=== PATIENT | male | born 1995 | race Caucasian/White ===

== ENCOUNTER 2023-07-29 21:37 | Emergency (ER) | payer MEDICAID, OTHER ==
[2023-07-29] MEDS: Sodium Chloride 0.9% 1,000 ML IV SCH (22:00)
[2023-07-29] MEDS: Ondansetron 4 MG/2 ML SDV IVPUSH ONE (22:00)
[2023-07-29 22:14] LABS: BASOPHILS ABSOLUTE AUTO 0.06 K/uL (0.00-0.10); BASOPHILS PERCENT AUTO 0.4 % (0.1-1.3); EOSINOPHILS ABSOLUTE AUTO 0.04 K/uL (0.00-0.40); EOSINOPHILS PERCENT AUTO 0.2 % (0.0-5.4); HEMATOCRIT 49.6 % (38.4-49.7); HEMOGLOBIN 17.1 g/dL (12.9-16.9); IMMATURE GRAN ABSOLUTE AUTO 0.06 K/uL (0.00-0.23); IMMATURE GRAN PERCENT AUTO 0.4 % (0.0-0.7); LYMPHOCYTES ABSOLUTE AUTO 1.55 K/uL (0.8-3.3); LYMPHOCYTES PERCENT AUTO 9.4 % (11.4-47.7); MEAN CORPUSCULAR HEMOGLOBIN 28.8 pg (31.6-35.5); MEAN CORPUSCULAR HGB CONC 34.5 g/dL (31.6-35.5); MEAN CORPUSCULAR VOLUME 83.5 fL (81.4-99.0); MONOCYTES ABSOLUTE AUTO 0.86 K/uL (0.20-0.90); MONOCYTES PERCENT AUTO 5.2 % (3.3-12.6); NEUTROPHILS PERCENT AUTO 84.4 % (40.0-78.1); PLATELET COUNT,PLT 266 K/uL (130-375); RED BLOOD CELL COUNT 5.94 M/uL (4.14-5.76); WHITE BLOOD CELL COUNT,WBC 16.5 K/uL (3.2-11.0)
[2023-07-29] MEDS ORDERED: Naloxone 0.4 MG/ML SDV IVPUSH PRN (22:24)
[2023-07-29] MEDS: HYDROmorphone 0.5 MG/0.5 ML Syringe IVPUSH ONE (22:31)
[2023-07-29] MEDS: Ondansetron 4 MG/2 ML SDV ONE (22:31)
[2023-07-29 22:41] LABS: A/G RATIO 1.1 (1.2-2.2); ALANINE AMINOTRANSFERASE,ALT 31 U/L (12-78); ALBUMIN 4.1 g/dL (3.4-5.0); ALKALINE PHOSPHATASE 79 U/L (46-116); ANION GAP 14.7 mmol/L (5.0-14.0); ASPARTATE AMNIOTRANSFERASE,AST 17 U/L (15-37); BILIRUBIN TOTAL 0.4 mg/dL (0.2-1.0); BLOOD UREA NITROGEN,BUN 17 mg/dL (7-18); CALCIUM 9.3 mg/dL (8.5-10.1); CARBON DIOXIDE,CO2 23 mmol/L (21-32); CHLORIDE,CL 102 mmol/L (100-108); CREATININE 1.2 mg/dL (0.8-1.3); EST CRCL DRUG DOSING (CG) 85.69 mL/min; ESTIMATED GFR 84 mL/min (>60); GLUCOSE RANDOM 138 mg/dL (74-106); POTASSIUM,K 3.8 mmol/L (3.6-5.2); SODIUM,NA 140 mmol/L (140-148)
[2023-07-29 22:44] LABS: C-REACTIVE PROTEIN < 0.50 mg/dL (<0.50)
[2023-07-29] MEDS: Iopamidol 612 MG/ML 100 ML Bottle IV ONE (23:05)
[2023-07-29] MEDS: Sodium Chloride 0.9% 100 ML IV ONE (23:05)
[2023-07-29] MEDS: Sodium Chloride 0.9% 10 ML Syringe FLUSH ONE (23:05)
[2023-07-30] MEDS ORDERED: Sodium Chloride 0.9% 1,000 ML IV SCH (00:15)
[2023-07-30] MEDS: Prochlorperazine 10 MG/2 ML SDV IVPUSH ONE (00:20)
== END 2023-07-30 01:24 | disposition home or self-care (01) ==
LOC: JP.ED 21:37 → MERGE 21:37 → JP.ED 07-30 01:24
DX: K52.9 Noninfective gastroenteritis and colitis, unspecified (principal); Z91.030 Bee allergy status; Z91.010 Allergy to peanuts; Z88.0 Allergy status to penicillin; Z79.899 Other long term (current) drug therapy
CPT/HCPCS: 36415; 74177; 80053; 83605; 83690; 85025; 86140; 96361; 96374; 96375; 99284; J1170; J2405; J3490; J7030; Q9967; 99283